=== PATIENT | male | born 1955 | race Caucasian/White ===

== ENCOUNTER 2018-03-02 14:12 | Emergency (ER) | payer OTHER ==
[~2018-03-02] VITALS: Ht 180.3 cm; Wt 65.8 kg
[2018-03-02] MEDS ORDERED: ZESTRIL5 MG PO (14:34)
== END 2018-03-02 21:17 | disposition home or self-care (01) ==
LOC: ER 14:12
DX: K40.90 Unilateral inguinal hernia, without obstruction or gangrene, not specified as recurrent (principal)

== ENCOUNTER 2018-06-05 11:49 | Day surgery (SDC) | payer OTHER ==
[~2018-06-05 11:49] MED LIST: ZESTRIL5 MG PO
== END 2018-06-05 17:20 | disposition home or self-care (01) ==
LOC: CIR.AMB 11:49
DX: K40.90 Unilateral inguinal hernia, without obstruction or gangrene, not specified as recurrent (principal)